=== PATIENT | male | born 1945 | race Caucasian/White ===

== ENCOUNTER 2022-03-19 12:18 | Emergency (ER) | payer MEDICARE, OTHER ==
--- NOTE | 2022-03-19 12:47 | ERPHSYRPT ---
- History of Present Illness Time Seen by Provider: 03/19/22 12:30 Source: patient Exam Limitations: no limitations Patient Subjective Stated Complaint: Told my EMS that pt has alzheimers and he is on hospice and he hasn't eaten for 7 days Triage Nursing Assessment: Pt brought to the ER by EMS, hypertensive, denies pain, fidgiting around, appears anxious, doesn't understand why he is here, pt is oriented to name only, pulses normal, breathing hard, skin n/w/d Physician History: Patient is a 76-year-old male with advanced dementia. Patient is here with his for evaluation for primary care provider's request. Patient is not a hospice patient at this time. states that she is contemplating hospice care however he is currently not in hospice. states patient has not eaten in 7 days and appears very anxious. Patient is a poor historian due to his mental status. Patient unable to provide information towards his HPI. However no trauma reported. No fever reported. No nausea no vomiting no diarrhea reported. Patient does not appear to be in pain. Patient's symptoms are constant. Patient symptoms are moderate in intensity. No specific worsening improving factors. at bedside voices no other complaints or concerns at this time. Timing/Duration: today Severity: moderate Modifying Factors: Improves With: nothing Associated Symptoms: denies symptoms Allergies/Adverse Reactions: No Known Drug Allergies Allergy (Verified 03/19/22 15:53) Travel Risk - International Travel Have you traveled outside of the country in past 3 weeks: No - Coronavirus Screening Are you exhibiting any of the following symptoms?: No Close contact with a COVID-19 positive Pt in past 14-21 Days: No - Vaccine Status Have you recieved a Covid-19 vaccination: No - Review of Systems Abdominal/Gastrointestinal: Diarrhea All Other Systems: Unable due to dementia - Past Medical History Pertinent Past Medical History: (unknown) - Past Surgical History Past Surgical History: (unknown) - Social History Smoking Status: Never smoker Exposure to second hand smoke: No Drug Use: none Patient Lives Alone: No - Nursing Vital Signs Nursing Vital Signs: Initial Vital Signs Temperature 97.2 F 03/19/22 12:20 Pulse Rate 100 H 03/19/22 12:20 Blood Pressure 158/97 03/19/22 12:20 O2 Sat by Pulse Oximetry 99 03/19/22 12:20 Pain Scale Pain Intensity 0 - Physical Exam General Appearance: no apparent distress, alert Eye Exam: PERRL/EOMI, eyes nml inspection Ears, Nose, Throat Exam: normal ENT inspection, TMs normal, pharynx normal, moist mucous membranes Neck Exam: normal inspection, non-tender, supple, full range of motion Respiratory Exam: normal breath sounds, lungs clear, airway intact, No respiratory distress Cardiovascular Exam: regular rate/rhythm, normal heart sounds, normal peripheral pulses Gastrointestinal/Abdomen Exam: soft, normal bowel sounds, other (Tenderness to palpation lower abdomen fullness of suprapubic region. Possible urinary retention), No tenderness, No mass Back Exam: normal inspection, normal range of motion, No CVA tenderness, No vertebral tenderness Extremity Exam: normal inspection, normal range of motion, pelvis stable Neurologic Exam: alert, oriented x 3, cooperative, normal mood/affect, sensation nml, No motor deficits Skin Exam: normal color, warm, dry, No rash Lymphatic Exam: No adenopathy SpO2 Interpretation: normal SpO2: 99 O2 Delivery: Room Air - Course Nursing assessment & vital signs reviewed: Yes - CT Exams Abdomen/Pelvis CT Interpretation: Tele-radiologist Report (Enlarged prostate, bladder outlet obstruction, fat-containing right inguinal hernia, spine arthritis degenerative disc disease) Ordered Tests: Active Orders 24 hr Category Date Time Status Rn Homecare STAT Care 03/19/22 12:48 Active IV Insertion STAT Care 03/19/22 12:47 Active ABDOMEN AND PELVIS W/0 CONTRAS [CT] Stat Exams 03/19/22 12:50 Completed CHEST 1 VIEW (PORTABLE) Stat Exams 03/19/22 16:47 Completed CBC W DIFF Stat Lab 03/19/22 14:07 Completed CMP Stat Lab 03/19/22 14:07 Completed UA W/RFX CULTURE Stat Lab 03/19/22 16:59 Completed Urine Triage Profile Stat Lab 03/19/22 14:13 Completed Medication Summary Generic Name Dose Route Start Last Admin Trade Name Freq PRN Reason Stop Dose Admin Sodium Chloride 1,000 mls @ 100 mls/hr 03/19/22 13:00 03/19/22 12:58 Sodium Chloride 0.9% 1000 Ml IV 04/18/22 12:59 100 mls/hr .Q10H BULMARO Administration Lab/Rad Data: Laboratory Result Diagrams 03/19/22 14:07 03/19/22 14:07 Laboratory Results 03/19/22 03/19/22 03/19/22 Range/Units 16:59 14:35 14:13 WBC (4.0-10.5) x10^3/uL RBC (4.1-5.6) x10^6/uL Hgb (12.5-18.0) g/dL Hct (42-50) % MCV (78-100) fL MCH (26-32) pg MCHC (32-36) g/dL RDW (11.5-14.0) % Plt Count (150-450) x10^3/uL MPV (7.5-11.0) fL Gran % (36.0-66.0) % Immature Gran % (Auto) (0.00-0.4) % Nucleat RBC Rel Count (0.00-0.1) % Eos # (Auto) (0-0.5) x10^3/uL Immature Gran # (Auto) (0.00-0.03) x10^3u/L Absolute Lymphs (auto) (1.0-4.6) x10^3/uL Absolute Monos (auto) (0.0-1.3) x10^3/uL Absolute Nucleated RBC (0.00-0.01) x10^3u/L Lymphocytes % (24.0-44.0) % Monocytes % (0.0-12.0) % Eosinophils % (0.00-5.0) % Basophils % (0.0-0.4) % Absolute Granulocytes (1.4-6.9) x10^3/uL Basophils # (0-0.4) x10^3/uL Sodium (137-145) mmol/L Potassium (3.5-5.1) mmol/L Chloride (98-107) mmol/L Carbon Dioxide (22-30) mmol/L Anion Gap (5-15) MEQ/L BUN (9-20) mg/dL Creatinine (0.66-1.25) mg/dL Estimated GFR ML/MIN Glucose (74-106) mg/dL Calcium (8.4-10.2) mg/dL Total Bilirubin (0.2-1.3) mg/dL AST (17-59) U/L ALT (0-50) U/L Alkaline Phosphatase (38-126) U/L Serum Total Protein (6.3-8.2) g/dL Albumin (3.5-5.0) g/dL Urinalys Dipstick Clnc MAIN LAB Urine Color YELLOW (YELLOW) Urine Appearance CLEAR (CLEAR) Urine pH 5.5 (5-6) Ur Specific [place] 1.010 (1.005-1.025) POC Urine Protein Conf NEGATIVE (Negative) Urine Ketones NEGATIVE (NEGATIVE) Urine Nitrite NEGATIVE (NEGATIVE) Urine Bilirubin NEGATIVE (NEGATIVE) Urine Urobilinogen 0.2 (0-1) mg/dL Urine Leukocytes NEGATIVE (NEGATIVE) Urine WBC (Auto) NONE (0-5) /HPF Urine RBC (Auto) 0-2 (0-2) /HPF U Hyaline Cast (Auto) 0-2 (0-2) /LPF U Epithel Cells (Auto) NONE (FEW) /HPF Urine Bacteria (Auto) NONE (NEGATIVE) /HPF Urine RBC MODERATE (0-5) Manny/ul Urine Mucus (Auto) SLIGHT (NEGATIVE) /HPF Ur Culture Indicated? NO Urine Glucose NEGATIVE (NEGATIVE) mg/dL Urine Opiates Level NEGATIVE (NEGATIVE) Ur Methadone NEGATIVE (NEGATIVE) Urine Barbiturates NEGATIVE (NEGATIVE) Ur Phencyclidine (PCP) NEGATIVE (NEGATIVE) Urine Amphetamine NEGATIVE (NEGATIVE) U Benzodiazepine Level NEGATIVE (NEGATIVE) Urine Cocaine NEGATIVE (NEGATIVE) Urine Marijuana (THC) NEGATIVE (NEGATIVE) Influenza Type A Ag NEGATIVE (NEGATIVE) Influenza Type B Ag NEGATIVE (NEGATIVE) RSV (PCR) NEGATIVE (Negative) SARS-CoV-2 (PCR) NEGATIVE (NEGATIVE) 03/19/22 03/19/22 Range/Units 14:07 14:07 WBC 9.1 (4.0-10.5) x10^3/uL RBC 4.21 (4.1-5.6) x10^6/uL Hgb 13.1 (12.5-18.0) g/dL Hct 38.2 L (42-50) % MCV 90.7 (78-100) fL MCH 31.1 (26-32) pg MCHC 34.3 (32-36) g/dL RDW 12.5 (11.5-14.0) % Plt Count 232 (150-450) x10^3/uL MPV 11.6 H (7.5-11.0) fL Gran % 65.8 (36.0-66.0) % Immature Gran % (Auto) 0.3 (0.00-0.4) % Nucleat RBC Rel Count 0.0 (0.00-0.1) % Eos # (Auto) 0.07 (0-0.5) x10^3/uL Immature Gran # (Auto) 0.03 (0.00-0.03) x10^3u/L Absolute Lymphs (auto) 2.21 (1.0-4.6) x10^3/uL Absolute Monos (auto) 0.73 (0.0-1.3) x10^3/uL Absolute Nucleated RBC 0.00 (0.00-0.01) x10^3u/L Lymphocytes % 24.2 (24.0-44.0) % Monocytes % 8.0 (0.0-12.0) % Eosinophils % 0.8 (0.00-5.0) % Basophils % 0.9 (0.0-0.4) % Absolute Granulocytes 6.00 (1.4-6.9) x10^3/uL Basophils # 0.08 (0-0.4) x10^3/uL Sodium 134 L (137-145) mmol/L Potassium 4.6 (3.5-5.1) mmol/L Chloride 102 (98-107) mmol/L Carbon Dioxide 14 L* (22-30) mmol/L Anion Gap 22.0 H (5-15) MEQ/L BUN 94 H (9-20) mg/dL Creatinine 11.79 H (0.66-1.25) mg/dL Estimated GFR 4.5 ML/MIN Glucose 98 (74-106) mg/dL Calcium 10.0 (8.4-10.2) mg/dL Total Bilirubin 1.00 (0.2-1.3) mg/dL AST 29 (17-59) U/L ALT 12 (0-50) U/L Alkaline Phosphatase 85 (38-126) U/L Serum Total Protein 7.5 (6.3-8.2) g/dL Albumin 4.3 (3.5-5.0) g/dL Urinalys Dipstick Clnc Urine Color (YELLOW) Urine Appearance (CLEAR) Urine pH (5-6) Ur Specific [place] (1.005-1.025) POC Urine Protein Conf (Negative) Urine Ketones (NEGATIVE) Urine Nitrite (NEGATIVE) Urine Bilirubin (NEGATIVE) Urine Urobilinogen (0-1) mg/dL Urine Leukocytes (NEGATIVE) Urine WBC (Auto) (0-5) /HPF Urine RBC (Auto) (0-2) /HPF U Hyaline Cast (Auto) (0-2) /LPF U Epithel Cells (Auto) (FEW) /HPF Urine Bacteria (Auto) (NEGATIVE) /HPF Urine RBC (0-5) Manny/ul Urine Mucus (Auto) (NEGATIVE) /HPF Ur Culture Indicated? Urine Glucose (NEGATIVE) mg/dL Urine Opiates Level (NEGATIVE) Ur Methadone (NEGATIVE) Urine Barbiturates (NEGATIVE) Ur Phencyclidine (PCP) (NEGATIVE) Urine Amphetamine (NEGATIVE) U Benzodiazepine Level (NEGATIVE) Urine Cocaine (NEGATIVE) Urine Marijuana (THC) (NEGATIVE) Influenza Type A Ag (NEGATIVE) Influenza Type B Ag (NEGATIVE) RSV (PCR) (Negative) SARS-CoV-2 (PCR) (NEGATIVE) - Progress Progress: improved Progress Note: 03/19/22 16:[address] Toro, hospitalist at [facility] and n ephrologist who accepts transfer. Plan of care discussed with . She agrees to transfer to [facility] for further evaluation and treatment. Portions of this note were created with voice recognition technology. There may be grammatical, spelling, punctuation or sound alike errors 03/19/22 18:08 UA negative for UTI. Chest x-ray negative for pulmonary congestion. Per Dr. Chou's request patient started on 100 cc normal saline infusion. Portions of this note were created with voice recognition technology. There may be grammatical, spelling, punctuation or sound alike errors Counseled pt/family regarding: lab results, diagnosis, rad results - Departure Departure Disposition: Transfer Clinical Impression: Urinary retention, Metabolic acidosis, Dementia, Bladder outlet obstruction, Acute renal failure, Degenerative disc disease Condition: Stable Critical Care Time: No Referrals: TREMAYNE CHOI, [employer] [Nurse Practioner] - Follow up/PCP as directed
[2022-03-19] MEDS ORDERED: Sodium Chloride 0.9% 1000 ML 1,000 ML ONE (12:55)
[2022-03-19] MEDS ORDERED: Sodium Chloride 0.9% 1000 ML 1,000 ML IV SCH (13:00)
[2022-03-19 13:37] VITALS: BP 160/95
[2022-03-19 14:05] LABS: Basophil (Absolute #) 0.08 x10^3/uL (0-0.4); Eosinophil % 0.8 % (0.00-5.0); Eosinophil (Absolute #) 0.07 x10^3/uL (0-0.5); Hematocrit 38.2 % (42-50); Hemoglobin 13.1 g/dL (12.5-18.0); Lymphocyte (Absolute #) 2.21 x10^3/uL (1.0-4.6); Lymphocytes % 24.2 % (24.0-44.0); Mean Cell Volume 90.7 fL (78-100); Mean Corpuscular Hemoglobin 31.1 pg (26-32); Mean Corpuscular Hgb Concent. 34.3 g/dL (32-36); Mean Platelet Volume 11.6 fL (7.5-11.0); Monocyte (Absolute #) 0.73 x10^3/uL (0.0-1.3); Neutrophil % 65.8 % (36.0-66.0); Platelet Count 232 x10^3/uL (150-450); Red Blood Count 4.21 x10^6/uL (4.1-5.6); Red Cell Distribution Width 12.5 % (11.5-14.0); White Blood Count 9.1 x10^3/uL (4.0-10.5)
--- NOTE | 2022-03-19 14:10 | XRAY ---
Exam: CT of the abdomen and pelvis without IV contrast from 03/19/2022. CTDI: 3.46 mGy Comparison: CT of the abdomen and pelvis with IV contrast from 09/24/2013. Indication: 76-year-old male with abdominal pain; patient unable to give history due to late stage Alzheimer's disease. I am given a history of prior nonspecified hernia repair and right nephrectomy. Technique: Non-IV contrast axial images were obtained through the abdomen and pelvis. Reconstructed coronal and sagittal images were created and reviewed. No oral contrast was given. Findings: The visualized lung bases appear clear. Assessment of the solid organs is limited without the use of IV contrast. The liver, spleen, pancreas, and adrenal glands appear grossly unremarkable. The gallbladder is mildly distended and reveals no dense calcifications within it. No intrahepatic biliary duct distention is seen. The right kidney is surgically absent. The left kidney reveals a probable upper peripelvic cyst and a prominent extrarenal pelvis. The most significant finding is the presence of a huge urinary bladder which rises to the lower L3 level. This measures 18.0 cm in craniocaudal dimension, 12.2 cm in AP dimension, and a maximum of 13.0 cm in width. The urinary bladder wall does not appear thickened. There is marked enlargement of the prostate gland which measures up to 6.4 cm in width and 5.6 cm in AP dimension on axial image #69. The findings are consistent with bladder outlet obstruction, probably due to the markedly enlarged prostate gland. Atherosclerotic vascular calcification is seen within a tortuous abdominal aorta and iliac arteries. No abdominal aortic aneurysm or abnormal retroperitoneal lymphadenopathy is seen. There is no free intraperitoneal air or free intraperitoneal fluid. No ventral abdominal wall hernia is seen. The bowel appears nonobstructed. The appendix is not definitely seen, but no inflammatory changes are noted within the right lower quadrant. Some calcified phleboliths are seen within the lower pelvis bilaterally. A minimal fat-containing right inguinal hernia is again seen. There is moderate to marked degenerative disc disease at the lower 4 lumbar interspace levels. I see no compression fraction or aggressive bone lesion. There is also moderate degenerative disc disease seen at T10-T11. Slight convexity of the lower lumbar spine toward the right is seen on the bridge repairer film. Impression: 1. There is marked enlargement of the prostate gland which appears about the same or perhaps slightly larger than that seen on 09/24/2013. In addition, there is marked enlargement of the urinary bladder consistent with bladder outlet obstruction. The superior margin of the markedly distended urinary bladder extends up to the lower aspect of L3 within the abdomen. See above. 2. No other acute process is seen. I believe there is a peripelvic cyst within the left kidney, as well as a large extrarenal pelvis. Assessment is limited without IV contrast. 3. No other acute process is seen within the abdomen or pelvis.
[2022-03-19 14:16] LABS: ALBUMIN 4.3 g/dL (3.5-5.0); Creatinine 1 11.79 mg/dL (0.66-1.25); EST GLOMERULAR FILTRATION RATE 4.5 ML/MIN; Potassium 4.6 mmol/L (3.5-5.1); Total Protein 7.5 g/dL (6.3-8.2)
[2022-03-19 15:13] LABS: Amphetamine,Urine NEGATIVE (NEGATIVE); Barbiturate,Urine NEGATIVE (NEGATIVE); Benzodiazepine,Urine NEGATIVE (NEGATIVE); Cocaine,Urine NEGATIVE (NEGATIVE); Methadone,Urine NEGATIVE (NEGATIVE); Opiate,Urine NEGATIVE (NEGATIVE); PCP,Urine NEGATIVE (NEGATIVE); THC,Urine NEGATIVE (NEGATIVE)
[2022-03-19 15:14] LABS: INFLUENZA A NEGATIVE (NEGATIVE); INFLUENZA B NEGATIVE (NEGATIVE); RESPIRATORY SYNCTIAL VIRUS NEGATIVE (Negative); SARS-CoV-2 Xpert Express NEGATIVE (NEGATIVE)
[2022-03-19 15:30] VITALS: O2SAT 99
[2022-03-19 17:11] VITALS: PULSE 103
--- NOTE | 2022-03-19 17:25 | XRAY ---
Exam: AP upright portable chest film from 03/19/2022. Comparison: [None.] Indication: Pulmonary congestion; shortness of breath. Findings: The transverse heart size is normal. There is mild tortuosity of both the ascending and descending thoracic aorta. The tahmina and mediastinal structures appear intact. A small calcified granuloma is seen at the right lung base. Otherwise, the lung hartman are well-expanded and appear clear. No vascular congestion is seen. No interstitial lung changes are noted. No pneumothorax or pleural effusion is seen. There is some interposition of the hepatic flexure of the colon with the liver in the right upper quadrant. No acute osseous process is seen. Some degenerative changes are seen within the mid and lower thoracic spine. Impression: 1. No acute cardiopulmonary disease is seen. 2. Some incidental findings are noted, as discussed above.
[2022-03-19 17:40] LABS: Appearance CLEAR (CLEAR)
[2022-03-19 17:42] LABS: Bilirubin NEGATIVE (NEGATIVE); Dipstick done @ ? MAIN LAB; Glucose NEGATIVE (NEGATIVE); Ketones NEGATIVE (NEGATIVE); Nitrite NEGATIVE (NEGATIVE); Ph 5.5 (5-6); Protein,Urine Dip NEGATIVE (Negative); RBC MODERATE Ery/ul (0-5); Urobilinogen 0.2 mg/dL (0-1)
[2022-03-19 17:45] LABS: Hyaline Casts 0-2 /LPF (0-2); Mucus SLIGHT /HPF (NEGATIVE); RBC 0-2 /HPF (0-2); Urine Cultured Indicated? NO
== END 2022-03-19 18:18 | disposition short-term general hospital (02) ==
LOC: ED 12:18
DX: R33.9 Retention of urine, unspecified (principal); E87.2 Acidosis; F03.90 Unspecified dementia, unspecified severity, without behavioral disturbance, psychotic disturbance, mood disturbance, and anxiety; N13.9 Obstructive and reflux uropathy, unspecified; N17.9 Acute kidney failure, unspecified; M51.36 Other intervertebral disc degeneration, lumbar region; R63.0 Anorexia; Z28.310 Unvaccinated for COVID-19; Z20.828 Contact with and (suspected) exposure to other viral communicable diseases
CPT/HCPCS: 0241U; 36000; 36415; 51702; 71045; 74176; 80053; 80307; 81015; 85025; 96360; 96361; 99285